=== PATIENT | female | born 1960 | race Caucasian/White ===

== ENCOUNTER → 2022-09-30 | Outpatient (CLI) | payer MEDICAID | LOC: ORTHO 14:20 | PROVIDERS: ATTEND Orthopaedic Surgery | DX: M70.61 Trochanteric bursitis, right hip (principal); E11.9 Type 2 diabetes mellitus without complications | CPT/HCPCS: 20610; G0463 ==

== ENCOUNTER → 2022-12-30 | Outpatient (CLI) | payer MEDICAID | LOC: ORTHO 15:17 | PROVIDERS: ATTEND Orthopaedic Surgery | DX: M76.01 Gluteal tendinitis, right hip (principal) | CPT/HCPCS: 99213 ==